=== PATIENT | male | born 1985 | race Caucasian/White ===

== ENCOUNTER 2016-04-23 07:06 | Emergency (ER) | payer SELFPAY ==
[~2016-04-23] VITALS: Ht 190.5 cm; Wt 127.9 kg
[~2016-04-23 07:06] MED LIST: ACET-1256 PO; DIPH25CA5 PO; IBUP1CAP9 PO; NAPR1TAB9 PO; OXYC1TAB3 PO
[2016-04-23 07:09] VITALS: TEMP 36.6; Ht 190.5 cm; Wt 127.9 kg
[2016-04-23] MEDS ORDERED: AMOXICILLIN 250 MG CAP PO STA (07:23)
[2016-04-23] MEDS ORDERED: OXYC1TAB3 PO (07:28)
[2016-04-23] MEDS ORDERED: AMOX500C3 PO (07:28)
--- NOTE | 2016-04-23 07:30 | EMERGENCY ROOM VISIT NOTE ---
History Report prepared by Whitney: Kelli Araya Under the Supervision of: Dr. Manoj Braun D.O. First contact with patient: 07:15 Chief Complaint: EAR PAIN Stated Complaint: EAR ACHES History of Present Illness The patient is a 31 year old male who presents to the Emergency Room with complaints of an exacerbation of pain to his ears, bilaterally, which has become worse over the past week. Currently, his pain is worse in his left ear than his right, and he rates his discomfort as a 3/10. Patient states that he has been experiencing similar pains to his ears at least once a year for the past 3-4 years. He has previously visited the [facility] ED for these symptoms when they first began 3 years ago and they suggested that he may need to have tubes placed in his ears because he might have an allergy, but he has not yet followed up with ENT. Patient states that he has been experiencing sinus congestion but he denies having fevers, chills, headache, sore throat, chest pain, shortness of breath, cough, abdominal pain, nausea, vomiting, diarrhea or urinary symptoms. Patient is a current smoker. Source of History: patient Onset: over the past week Position: ear (bilateral) Symptom Intensity: 3/10 Timing: worsening Associated Symptoms: No SOB, No abdominal pain, No chest pain, No chills, No cough, No diarrhea, No fevers, No headache, No nausea, No sorethroat, No urinary symptoms, No vomiting Note: Patient has sinus congestion. Review of Systems See HPI for pertinent positives & negatives. A total of 10 systems reviewed and were otherwise negative. Past Medical & Surgical Medical Problems: (1) Chest pain (2) Chest pain (3) Lyme carditis (4) Third degree heart block Family History Patient reports no known family medical history. Social History Smoking Status: Current Every Day Smoker Alcohol Use: occasionally Drug Use: none Marital Status: single Occupation Status: employed Current/Historical Medications Scheduled Amoxicillin (Amoxil), 500 MG PO TID Diphenhydramine Hcl (Benadryl), 25 MG PO Q4H Scheduled PRN Acetaminophen (Tylenol), 1,500 MG PO Q6 PRN for Pain Ibuprofen (Ibuprofen), 400-600 MG PO Q4 PRN for Pain Naproxen (Aleve), 440 MG PO DIRECTED PRN for Pain Oxycodone Immediate Rel Tab (Roxicodone Ir), 1-2 TAB PO Q4H PRN for Severe Pain Allergies Coded Allergies: Lactose Intolerance (GI) (Verified Allergy, Unknown, stomach pain, 04/23/16) Physical Exam Vital Signs Date Time Temp Pulse Resp B/P Pulse Ox O2 Delivery O2 Flow Rate FiO2 04/23/16 07:44 73 18 140/72 93 04/23/16 07:09 36.6 60 17 141/80 99 Room Air Physical Exam GENERAL: Patient is awake, alert, and in no acute distress. Patient is resting comfortably and showing no signs of anxiety EYES: The conjunctivae are clear. The pupils are round and reactive. EARS, NOSE, MOUTH AND THROAT: Erythema in the left TM. Air fluid level noted behind the ear drum. Right TM was normal in appearance. Clear rhinorrhea, bilaterally. Mucous membranes are moist tongue is midline NECK: The neck is nontender and supple. RESPIRATORY: Normal respiratory effort is noted there is no evidence of wheezing rhonchi or rales CARDIOVASCULAR: Regular rate and rhythm noted there no murmurs rubs or gallops normal S1 normal S2 GASTROINTESTINAL: The abdomen is soft. Bowel sounds are present in all quadrants. Abdomen is nontender MUSCULOSKELETAL/EXTREMITIES: There is no evidence of gross deformity full range of motion is noted in the hips and shoulders SKIN: There is no obvious evidence of any rash. There are no petechiae, pallor or cyanosis noted. NEUROLOGIC: Patient is awake alert and oriented x3. Medical Decision & Procedures Medications Administered Medications (Trade) Dose Ordered Sig/Florencia Route Start Time Stop Time Status Last Admin Dose Admin Amoxicillin (Amoxil Cap) 500 mg NOW STAT PO 04/23/16 07:23 04/23/16 07:25 DC 04/23/16 07:38 500 MG ED Course 0718: The patient was evaluated in room B9. A complete history and physical examination were performed. 0723: Amoxicillin 500 mg PO was ordered. 0740: I reevaluated the patient at this time and updated him on my findings of his exam. Discharge instructions were also discussed at this time. He verbalized his understanding and agreement with the treatment plan, and he is now ready for disposition. Medical Decision Sinusitis, OM, OE, serous otitis, foreign body, mastoiditis, URI and other differentials were considered. Nursing notes reviewed. The patient's previous electronic medical records reviewed. The patient is a 31-year-old male who presented to the emergency department for an evaluation of earache. The patient had left-sided earache which he has had in the past. His history and physical exam appeared to be consistent with otitis media. The patient is a smoker. He was encouraged to stop. He was started on antibiotic and encouraged to continue using Motrin and Tylenol as directed for mild pain. He was also encouraged to consider using a decongestant such as Flonase and follow-up with a family doctor for possible ENT referral given that he has had previous histories of otitis media in the past. He was also encouraged to rest and avoid any strenuous activity and return to the emergency department immediately if symptoms change worsen or if the need arises. [place] Drug Monitoring Program Search Results: patient reviewed within database Impression Primary Impression: Left otitis media Scribe Attestation The scribe's documentation has been prepared under my direction and personally reviewed by me in its entirety. I confirm that the note above accurately reflects all work, treatment, procedures, and medical decision making performed by me. Departure Information Dispostion Home / Self-Care Prescriptions Oxycodone Immediate Rel Tab (ROXICODONE IR) 5 Mg Tab 1-2 TAB PO Q4H Y for Severe Pain, #20 TAB Prov: Manoj Braun, DO 04/23/16 Amoxicillin (AMOXIL) 500 Mg Cap 500 MG PO TID, #30 CAP Prov: Manoj Braun, DO 04/23/16 Referrals No Doctor, Assigned (PCP) Forms HOME CARE DOCUMENTATION FORM, IMPORTANT VISIT INFORMATION, WORK / SCHOOL INSTRUCTIONS Patient Instructions A Signature Page, My [facility]
[2016-04-23 07:44] VITALS: BP 140/72; PULSE 73; O2SAT 93
== END 2016-04-23 07:46 | disposition home or self-care (01) ==
LOC: C.EDB 07:07
DX: H66.92 Otitis media, unspecified, left ear (principal); F17.200 Nicotine dependence, unspecified, uncomplicated

== ENCOUNTER 2016-06-10 10:30 | Emergency (ER) | payer SELFPAY ==
[~2016-06-10] VITALS: Ht 190.5 cm; Wt 125.1 kg
[~2016-06-10 10:30] MED LIST changes: +BND25 PO; -DIPH25CA5 PO
[2016-06-10 10:40] VITALS: TEMP 37.3; Ht 190.5 cm; Wt 125.1 kg
[2016-06-10] MEDS ORDERED: OXYCODONE/ACETAMINOPHEN 5-325 TAB PO ONE (11:45)
[2016-06-10] MEDS ORDERED: PENICILLIN V POTASSIUM 250 MG TAB PO ONE (11:45)
[2016-06-10] MEDS ORDERED: HYDR-5688 PO (11:48)
[2016-06-10] MEDS ORDERED: PENI-82 PO (11:48)
--- NOTE | 2016-06-10 11:49 | EMERGENCY ROOM VISIT NOTE ---
ED Visit Note First contact with patient: 11:14 CHIEF COMPLAINT: Dental pain HISTORY OF PRESENT ILLNESS: This is a 31-year-old male who ambulates into the complaining of ear pain and dental pain. He states that he initially had pain in the right ear for 2 weeks. He states that last week he noticed a probable to the upper gum and he popped it. He states that he then developed lower jaw pain and swelling. The patient has a history of recurrent otitis media. The patient states that the pain is 5/10. He states that he noticed swelling to the right lower jaw last night. He denies any fevers, chills, nausea, vomiting , diarrhea. He denies any pain in his chest or trouble breathing. He denies any cough, runny nose or headache. He has not had any recent illness. He states that he was advised he should see an political advisor in the past but has never followed up with them over the last several years. He also states he does not have a dentist and has not followed up with a dentist. REVIEW OF SYSTEMS: As noted above in History of Present Illness. 8 body systems were reviewed with this patient and found to be negative unless noted above otherwise. PMH: . None none CURRENT MEDICATION: . ALLERGIES TO MEDICATION: Patient denies. SOCIAL HISTORY: The patient is a smoker PHYSICAL EXAM: Vital Signs: Temperature 37.3C orally; blood pressure ; heart rate ; respiratory rate . General: This is a 31-year-old male in mild distress due to pain, nontoxic appearing, afebrile and hemodynamically stable. Neurological: Awake, alert and oriented to person, place and time. Answering questions appropriately and following commands. Normal gait. Good hand eye coordination. No focal motor or sensory deficits. Skin: Warm, dry and pink. No soft tissue lesions, rashes, or trauma noted. HEENT: Atraumatic and normocephalic. Oral cavity is moist and pink. Airway is patent. Uvula is midline and no abscesses are seen. Airway is patent. Speech is normal. No drooling. No intraoral trauma is noted. There is swelling noted to the right lower jaw. There is tenderness to palpation. There is no obvious drainable abscess. There is tenderness to palpation over tooth #30. There is no swelling beneath the tongue. There is no mastoid tenderness. The tympanic membranes are pearly munoz bilaterally without erythema. There is no tragus tenderness or external auditory canal drainage. Problem List Medical Problems: (1) Chest pain Status: Resolved (2) Chest pain Status: Resolved (3) Lyme carditis Status: Resolved (4) Third degree heart block Status: Chronic Current/Historical Medications Scheduled Diphenhydramine Hcl (Benadryl), 25 MG PO Q4H Penicillin V Potassium (Veetids), 500 MG PO QID Scheduled PRN Acetaminophen (Tylenol), 1,500 MG PO Q6 PRN for Pain Hydrocodone/Acetaminophen 5MG/325MG ([place] 5MG/325MG), 1 TABLET PO Q4H PRN for Pain Ibuprofen (Ibuprofen), 400-600 MG PO Q4 PRN for Pain Naproxen (Aleve), 440 MG PO DIRECTED PRN for Pain Allergies Coded Allergies: Lactose Intolerance (GI) (Verified Allergy, Unknown, stomach pain, 06/10/16 ) Vital Signs Date Time Temp Pulse Resp B/P Pulse Ox O2 Delivery O2 Flow Rate FiO2 06/10/16 11:50 64 16 136/80 94 Room Air 06/10/16 10:40 37.3 68 18 149/86 97 Room Air Medications Administered Medications (Trade) Dose Ordered Sig/Florencia Route Start Time Stop Time Status Last Admin Dose Admin Oxycodone/ Acetaminophen (Percocet 5-325mg Tab) 1 tab NOW ONCE PO 06/10/16 11:45 06/10/16 11:46 DC 06/10/16 11:47 1 TAB Penicillin V Potassium (Veetids Tab) 500 mg ONE ONCE PO 06/10/16 11:45 06/10/16 11:46 DC 06/10/16 11:47 500 MG Departure Information Impression Primary Impression: Dental abscess Dispostion Home / Self-Care Condition GOOD Prescriptions Penicillin V Potassium (Veetids) 500 Mg Tab 500 MG PO QID, #40 TAB Prov: Tracy Rodriguez PA-C 06/10/16 Hydrocodone/Acetaminophen 5MG/325MG ([place] 5MG/325MG) Tab 1 TABLET PO Q4H Y for Pain, #15 TAB For Initial Treatment Prov: Tracy Rodriguez PA-C 06/10/16 Referrals No Doctor, Assigned (PCP) Patient Instructions [facility] Additional Instructions Pen-Vee K 4 times daily for 10 days.[place] one tablet every 6 hours if needed for worse pain. Do not drink or drive while taking [place] and do not take with Tylenol. Followup with a dentist for definitive management of your tooth. Return with high fevers, worsening pain or swelling. Contact an ear nose and throat doctor for further evaluation and management of the ongoing ear problems.
[2016-06-10 11:50] VITALS: BP 136/80; PULSE 64; O2SAT 94
== END 2016-06-10 11:55 | disposition home or self-care (01) ==
LOC: C.EDB 10:31 → C.EDD 11:55
DX: K04.7 Periapical abscess without sinus (principal); I44.2 Atrioventricular block, complete